=== PATIENT | male | born 1985 | race African-American/Black ===

== ENCOUNTER 2016-11-06 09:05 | Emergency (ER) | payer OTHER ==
[2016-11-06 09:14] VITALS: BP 114/59; PULSE 93; TEMP 98.5; BMI 28.0
--- NOTE | 2016-11-06 09:23 | PDOC ---
History of Present Illness - General Chief Complaint: Pain Stated Complaint: GOUT, RT WRIST Time Seen by Provider: 11/06/16 09:22 History Source: Patient Exam Limitations: No Limitations - History of Present Illness Initial Comments: 11/06/16 09:44 Shunt here with complaints of severe right wrist pain. Suffers from gout, but is noncompliant with diet and medications. Was seen last year by myself for same. Admits he does not adhere to foods and with increasing amounts of red meats has re-exacerbations of his gout attacks. States this one has been persistent for 2 weeks, and is run out of the colchicine and using only ibuprofen with minimal resolved. Denies fever, denies any recent trauma, Occurred: reports: last week Severity: reports: moderate Pain Location: reports: upper extremity ( ) Modifying Factors: improves with: None, immobilization, pain medication Associated Symptoms (Fall): denies symptoms Past History - Travel Traveled outside of the country in the last 30 days: No Close contact w/someone who was outside of country & ill: No - Past Medical History Allergies/Adverse Reactions: Allergies Allergy/AdvReac Type Severity Reaction Status Date / Time No Known Allergies Allergy Verified 11/06/16 09:12 Home Medications: Ambulatory Orders Colchicine [Colcrys -] 0.3 mg PO QID #30 tablet 11/06/16 Naproxen [Naprosyn -] 500 mg PO BID #14 tablet 11/06/16 - Psycho/Social/Smoking Cessation Hx Anxiety: No Suicidal Ideation: No Smoking Status: No Smoking History: Never smoked Have you smoked in the past 12 months: No Number of Cigarettes Smoked Daily: 0 Information on smoking cessation initiated: No Hx Alcohol Use: No Drug/Substance Use Hx: No Substance Use Type: None Review of Systems - Review of Systems Able to Perform ROS?: Yes Is the patient limited Frisian proficient: Yes Constitutional: Yes: Symptoms Reported, See HPI, Malaise. No: Fever HEENTM: No: Symptoms Reported Respiratory: No: Symptoms reported Musculoskeletal: Yes: Symptoms Reported, See HPI, Joint Pain, Joint Swelling, Joint Stiffness All Other Systems: Reviewed and Negative *Physical Exam - Vital Signs Last Vital Signs Temp Pulse Resp BP Pulse Ox 98.5 F 93 H 18 114/59 100 11/06/16 09:12 11/06/16 09:12 11/06/16 09:12 11/06/16 09:12 11/06/16 09:12 - Physical Exam General Appearance: Yes: Nourished, Appropriately Dressed, Apparent Distress, Mild Distress, Moderate Distress HEENT: positive: YAEL, Normal ENT Inspection, TMs Normal, Pharynx Normal Neck: positive: Supple. negative: Tender Musculoskeletal: positive: Normal Inspection Extremity: positive: Normal Capillary Refill, Tender (right wrist pain / worse with flexion and extension, Able to move fingers but this exacerbates pain. heat and swelling at distal ulna- site where gout attacks occur. ), Swelling. negative: Normal Inspection, Normal Range of Motion Integumentary: positive: Normal Color, Dry, Warm, Erythema Neurologic: positive: information services vice president II-XII NML intact, Fully Oriented, Alert, Normal Mood/ Affect, Normal Response, Motor Strength 12/15 Progress Note - Progress Note Progress Note: Gout re-exacerbation, will treat with NSAIDs, colchicine, and one dose of Decadron *DC/Admit/Observation/Transfer Diagnosis at time of Disposition: Gout attack Qualifiers: Gout site: wrist Gout etiology: unspecified cause Laterality: right Qualified Code(s): M10.9 - Gout, unspecified - Discharge Dispostion Disposition: HOME Condition at time of disposition: Stable Admit: No - Prescriptions Prescriptions: Colchicine [Colcrys -] 0.3 mg PO QID #30 tablet Naproxen [Naprosyn -] 500 mg PO BID #14 tablet - Referrals Referrals: Santana Harding MD [Staff Physician] - - Patient Instructions Additional Instructions: Rest, ice to area on and off for 15 minutes 4-6 times a day Avoid heavy lifting or exercise until pain and swelling is resolved or until further directed Keep area highly elevated to reduce swelling Use splints/Scott wrap as directed Followup with orthopedist in one to 2 days if not improving, if significantly improved may wait one week for followup with orthopedist New colchicine as directed for pain and gout Naprosyn 500 mg tablet every 8 hours for the next 3 days then as needed - Post Discharge Activity Work/School Note: Back to Work
[2016-11-06] MEDS ORDERED: KETOROLAC TROMETHAMINE 60 MG/2 ML VIAL IM ONE (09:44)
[2016-11-06] MEDS ORDERED: KETOROLAC TROMETHAMINE 60 MG/2 ML VIAL ONE (09:45)
[2016-11-06] MEDS ORDERED: DEXAMETHASONE SOD PHOSPHATE 10 MG/1 ML VIAL IM ONE (09:46)
[2016-11-06] MEDS ORDERED: DEXAMETHASONE SOD PHOSPHATE 10 MG/1 ML VIAL ONE (09:50)
== END 2016-11-06 09:55 | disposition home or self-care (01) ==
LOC: JERFT 09:05
PROC: 3E0233Z Introduction of Anti-inflammatory into Muscle, Percutaneous Approach (ICD-10-PCS; principal; 2016-11-06)
PROC: 3E0233Z Introduction of Anti-inflammatory into Muscle, Percutaneous Approach (ICD-10-PCS; 2016-11-06)
DX: M10.9 Gout, unspecified (principal)
CPT/HCPCS: 96372; 99281-25